=== PATIENT | male | born 1970 | race African-American/Black ===

== ENCOUNTER 2017-04-29 10:07 | Emergency (ER) | payer OTHER ==
[~2017-04-29] VITALS: Ht 175.3 cm; Wt 92.0 kg
[2017-04-29] MEDS ORDERED: NAPROSYN500 MG PO (11:21)
[2017-04-29] MEDS ORDERED: FLEXERIL10 MG PO (11:21)
[2017-04-29] MEDS ORDERED: LIDODERM 5% P1 PATCH TD (11:21)
[2017-04-29 11:50] VITALS: BP 139/75
== END 2017-04-29 11:50 | disposition home or self-care (01) ==
LOC: EME 10:07
DX: M51.36 Other intervertebral disc degeneration, lumbar region (principal); Z88.0 Allergy status to penicillin
CPT/HCPCS: 72100; 99281; 99283

== ENCOUNTER 2017-06-23 18:36 | Emergency (ER) | payer OTHER ==
[~2017-06-23] VITALS: Ht 175.3 cm; Wt 87.8 kg
[~2017-06-23 18:36] MED LIST: FLEXERIL10 MG PO; LIDODERM 5% P1 PATCH TD; NAPROSYN500 MG PO
[2017-06-23 19:41] LABS: HEMATOCRIT 46.1 % (38.0-50.0); MCH 28.5 PG (29.0-34.0); MCHC 33.2 G/DL (30.0-36.0); MCV 85.8 FL (86-99); MEAN PLAT.VOLUME 9.7 uM^3 (9.0-12.4); PLATELET COUNT 199 K/uL (156-360); RBC DIS.WIDTH-CV 11.9 % (11.8-14.6); RBC DIS.WIDTH-SD 37.2 % (39-53); RED BLOOD COUNT 5.37 M/uL (4.00-5.50); WHITE BLOOD COUNT 4.4 K/uL (4.1-10.2)
[2017-06-23 19:51] LABS: CHLORIDE 102 mEq/L (99-109); POTASSIUM 3.6 mEq/L (3.7-5.4); SODIUM 141 mEq/L (136-147)
[2017-06-23 19:52] LABS: GLUCOSE 110 mg/dL (70-99)
[2017-06-23 19:54] LABS: ANION GAP 13 MEQ/L (2-14)
[2017-06-23 19:56] LABS: GFR ESTIMATE (CALCULATED) > 59 mL/min/
[2017-06-23 19:57] LABS: UREA NITROGEN (BUN) 4 mg/dL (9-23)
[2017-06-23] MEDS ORDERED: PROAIR HFA8.5 GM IH (20:53)
[2017-06-23] MEDS ORDERED: ZITHROMAX250 MG PO (20:53)
[2017-06-23 21:28] VITALS: BP 135/86
== END 2017-06-23 21:29 | disposition home or self-care (01) ==
LOC: EXP 18:36 → EME 18:36 → EXP 21:29
DX: J20.9 Acute bronchitis, unspecified (principal)
CPT/HCPCS: 71020; 80048; 85027; 94664; 99281; 99283; J8540